=== PATIENT | female | born 1955 | race Caucasian/White ===

== ENCOUNTER 2022-02-12 13:49 | Outpatient (CLI) | payer MEDICARE, SELFPAY ==
--- NOTE | ~2022-02-12 | MR_ITS ---
EXAMINATION: MR lumbar spine wo con DATE: 02/12/2022 14:26 INDICATION: Foraminal stenosis of lumbar region. TECHNIQUE: Magnetic resonance imaging (MRI) of the lumbar spine was performed without intravenous con trast. Sequences included sagittal T2-weighted FSE, sagittal T2-weighted FS FSE, sagittal T1-weighted FSE, and axial T2-weighted FSE. COMPARISON: None FINDINGS: There is 14 degrees levoscoliosis of lumbar spine. Vertebral body heights are normal. There is severely decreased disc height at L1-L2, mildly decreased disc height at L2-L3, and severely decr eased disc height from L3-L4 through L5-S1 with endplate remodeling. The distal spinal cord signal in tensity is normal. The conus medullaris is at L1. The following disc levels are specifically discusse d: L1-L2: The disc is bulging and has an annular fissure. There is mild bilateral facet joint osteoarthr itis. There is moderate right and mild left neural foraminal stenosis. There is mild central canal st enosis. L2-L3: The disc is bulging. There is moderate bilateral facet joint osteoarthritis. There is mild alfonso ateral neural foraminal stenosis. There is mild central canal stenosis. L3-L4: The disc is bulging and has an annular fissure. There is moderate bilateral facet joint osteoa rthritis. There is moderate right and mild left neural foraminal stenosis. There is mild central maddy l stenosis. L4-L5: The disc is bulging and has an annular fissure. There is mild right and severe left facet join t osteoarthritis. There is mild right and moderate left neural foraminal stenosis. There is mild cent ral canal stenosis. L5-S1: The disc is bulging and has an annular fissure. There is moderate bilateral facet joint osteoa rthritis. There is moderate bilateral neural foraminal stenosis. There is mild central canal stenosis . IMPRESSION: 1. Severe lumbar spondylosis. Reviewed, dictated and finalized at location A.
== END 2022-02-12 13:50 | disposition home or self-care (01) ==
PROVIDERS: PCP Physician Assistant; Visit Provider Neurological Surgery
DX: M48.061 Spinal stenosis, lumbar region without neurogenic claudication (principal); M47.896 Other spondylosis, lumbar region
CPT/HCPCS: 72148